=== PATIENT | female | born 1995 | race African-American/Black ===

== ENCOUNTER 2024-06-29 06:39 | Emergency (ER) | payer OTHER ==
[~2024-06-29] VITALS: Ht 172.7 cm; Wt 95.5 kg
[2024-06-29 06:49] VITALS: BP 127/83
[2024-06-29 06:57] VITALS: TEMP 98.4
[2024-06-29 07:45] LABS: BASO % 0.6 % (0.0-1.0); EOS # 0.1 10^3/uL (0.0-0.5); EOS % 2.1 % (0.0-3.0); HEMATOCRIT 42.6 % (36.0-47.0); HEMOGLOBIN 13.9 g/dl (12.0-15.5); LYMPH # 1.3 10^3/uL (1.5-5.0); LYMPH % 25.8 % (24.0-44.0); MEAN CORPUSCULAR HGB CONC 32.6 g/dl (32.0-36.5); MEAN CORPUSCULAR VOLUME 79.6 fl (80.0-96.0); MONO # 0.4 10^3/uL (0.0-0.8); MONO % 6.7 % (2.0-8.0); NEUTROPHILS # 3.4 10^3/uL (1.5-8.5); NEUTROPHILS % 64.6 % (36.0-66.0); PLATELET COUNT, AUTOMATED 280 10^3/uL (150-450); RED BLOOD COUNT 5.35 10^6/uL (4.00-5.40); WHITE BLOOD COUNT 5.2 10^3/uL (4.0-10.0)
[2024-06-29 07:55] VITALS: O2SAT 98
[2024-06-29] MEDS: MORPHINE 2 MG/ML 1ML VIAL IV PRN (07:55)
[2024-06-29] MEDS: ONDANSETRON 4MG 2ML VIAL IV ONE (07:56)
[2024-06-29 08:07] LABS: INR 1.04; PROTHROMBIN TIME 13.3 SECONDS (12.5-14.5)
[2024-06-29 08:21] LABS: LIPASE 27 U/L (12-53)
[2024-06-29 08:23] LABS: ALBUMIN 3.8 G/DL (3.2-5.2); ALKALINE PHOSPHATASE 89 U/L (46-116); ALT/SGPT 14 U/L (7.0-40); AST/SGOT 13 U/L (<34); BILIRUBIN,DIRECT 0.1 MG/DL (<0.4); BILIRUBIN,TOTAL 0.4 MG/DL (0.3-1.2); CK-MB VALUE MASS < 1.0 NG/ML (<3.6); CPK CREATINE PHOSPHOKINASE 112 U/L (34-145); MB/CK RELATIVE INDEX 0.89 (< OR =4); TOTAL PROTEIN 7.2 G/DL (5.7-8.2)
[2024-06-29 08:25] LABS: FREE T4 1.23 NG/DL (0.89-1.76); THYROID STIMULATING HORMONE 4.383 uIU/ML (0.55-4.78)
[2024-06-29 08:27] LABS: HCG, SERUM QUALITATIVE NEGATIVE (NEGATIVE)
[2024-06-29] MEDS: KETOROLAC 30 MG/ML 1ML VIAL IV ONE (08:51)
== END 2024-06-29 10:21 | disposition home or self-care (01) ==
LOC: M ED 06:39
DX: S29.011A Strain of muscle and tendon of front wall of thorax, initial encounter (principal); X50.0XXA Overexertion from strenuous movement or load, initial encounter; I45.10 Unspecified right bundle-branch block; J45.909 Unspecified asthma, uncomplicated; Y92.009 Unspecified place in unspecified non-institutional (private) residence as the place of occurrence of the external cause; Y93.89 Activity, other specified; Y99.9 Unspecified external cause status
CPT/HCPCS: 71045; 80076; 82550; 82553; 83690; 83880; 84439; 84443; 84484; 84703; 85025; 85610; 85730; 93005; 96374; 96375; 99284; J1885; J2405

== ENCOUNTER 2024-08-28 15:10 | Emergency (ER) | payer OTHER ==
[~2024-08-28] VITALS: Ht 172.7 cm; Wt 98.7 kg
[2024-08-28] MEDS ORDERED: ALBU2.5V10 INH (15:44)
[2024-08-28] MEDS ORDERED: CETI10CH PO (15:44)
[2024-08-28] MEDS ORDERED: NAPR-849 PO (15:44)
[2024-08-28 17:14] VITALS: BP 122/77; TEMP 97; O2SAT 100
== END 2024-08-28 18:18 | disposition home or self-care (01) ==
LOC: M ED 15:10
DX: M79.672 Pain in left foot (principal); F41.9 Anxiety disorder, unspecified; F32.A Depression, unspecified; Z79.52 Long term (current) use of systemic steroids; Z79.899 Other long term (current) drug therapy